=== PATIENT | female | born 1955 | race Caucasian/White ===

== ENCOUNTER 2020-07-11 18:43 | Emergency (ER) | payer OTHER, MEDICAID ==
[~2020-07-11] VITALS: Ht 147.3 cm; Wt 61.2 kg
[2020-07-11 23:26] VITALS: BP 142/69
== END 2020-07-12 00:31 | disposition home or self-care (01) ==
LOC: ER 18:44
DX: S02.2XXA Fracture of nasal bones, initial encounter for closed fracture (principal); S09.90XA Unspecified injury of head, initial encounter; F17.210 Nicotine dependence, cigarettes, uncomplicated; H05.222 Edema of left orbit; W19.XXXA Unspecified fall, initial encounter; Y93.89 Activity, other specified; Y92.89 Other specified places as the place of occurrence of the external cause; Y99.8 Other external cause status
CPT/HCPCS: 70450; 70486

== ENCOUNTER 2020-08-31 15:56 | Emergency (ER) | payer OTHER, MEDICAID ==
[~2020-08-31] VITALS: Ht 147.3 cm; Wt 61.2 kg
[2020-08-31 20:16] VITALS: BP 118/64
== END 2020-08-31 21:07 | disposition home or self-care (01) ==
LOC: ER 15:56
DX: L03.011 Cellulitis of right finger (principal); F17.210 Nicotine dependence, cigarettes, uncomplicated; Z88.0 Allergy status to penicillin; Z88.8 Allergy status to other drugs, medicaments and biological substances

== ENCOUNTER 2025-03-20 12:53 | Emergency (ER) | payer OTHER, MEDICAID ==
[~2025-03-20] VITALS: Ht 142.2 cm; Wt 66.0 kg
--- NOTE | 2025-03-20 14:31 | DVH ---
EXAM: CT HEAD WITHOUT CONTRAST INDICATION: fall TECHNIQUE: CT of the head without intravenous contrast. Radiation Dose : 1. Head: CT Dose: CTDI volume is 21.6 mGy. Dose-length product is 1450.5 mGy*cm The dose indicators for CT are the volume Computed Tomography (CT) Dose Index (CTDIvol) and the Dose Length Product (DLP), and are measured in units of mGy and mGy-cm, respectively. These indicators are not patient dose, but values generated from the CT scanner acquisition factors. The report includes radiation exposure data for exposures received during this examination. COMPARISON: HEAD WITHOUT CONTRAST on DOS: 07/11/20 FINDINGS: Motion artifact degrades fine detail. No acute territorial infarct, intracranial hemorrhage, or mass effect. There are global involutional changes with compensatory prominence of the ventricles and sulci. Patchy periventricular and subcortical white matter hypoattenuation is nonspecific but may be related to small vessel ischemic disease. Bilateral lens implants. Moderate mucosal thickening within in the right maxillary antrum. The paranasal sinuses and mastoid air cells are otherwise clear. Right frontal scalp hematoma / laceration without underlying fracture. IMPRESSION: 1. No acute territorial infarct, intracranial hemorrhage, or mass effect. 2. Age-related involutional changes. Chronic microvascular changes. 3. Right maxillary sinus disease. Radiation optimization: All CT scans at this facility use at least one of these dose optimization techniques: automated exposure control mA and/or kV adjustment per patient size (includes targeted exams where dose is matched to clinical indication) or iterative reconstruction.
--- NOTE | 2025-03-20 14:31 | DVH ---
EXAM: CT CERVICAL WITHOUT CONTRAST INDICATION: fall EXAM DATE: 03/20/2025 01:57 PM COMPARISON: None TECHNIQUE: CT exam of the cervical spine was performed without intravenous contrast. CT Dose: CTDI volume is 50.87 mGy. Dose-length product is 1450.53 mGy*cm FINDINGS: C4-C6 ACDF. Grossly intact hardware. Fusion of the C3-C4 disc space. No evidence of acute fracture. Grade 1 anterolisthesis of C7 on T1. No prevertebral edema. Paraspinal soft tissues are within normal limits. Visualized lung apices are clear. IMPRESSION: No acute cervical spine fracture. Cervical spinal fusion.
--- NOTE | 2025-03-20 14:34 | ED.PDOC ---
Ottoniel. trauma (HPI) HPI Comments The patient with a history of use of a lift chair presents for evaluation after a fall and head injury. The patient reports falling out of a chair at home approximately 8 hrs ago and striking the head on an end table, resulting in a significant laceration. The patient does not recall losing consciousness or experiencing balance issues at the time of the fall. The primary concern is the head laceration. The patient's sister accompanied them to the visit and provided transportation. The patient reports taking a blood thinner but was initially uncertain about this. No other past medical history, surgical history, allergies, family history, social history, or additional medications were discussed. Denies any other symptoms at this time. Chief Complaint: Head Injury Time Seen by MD: 13:29 Primary Care Provider: JOSSIE Loera notes: Nurses Notes, Medications, Allergies Allergies: Coded Allergies: Flu Virus Vaccine (Verified Allergy, Unknown, 08/31/20) Penicillins (Verified Allergy, Unknown, 12/01/16) Information Source: Patient Mode of Arrival: Ambulatory Severity: Moderate Duration: Since onset Prehospital treatment: None Location: Head (4 cm lack) Location of laceration: Head Mechanism: Blunt trauma, Fall Associated signs and symtoms: None Past Medical History PAST MEDICAL HISTORY: Arthritis Surgical History: Unknown LOGISTICS OPERATIONS DIRECTOR History: No Pertinent LOGISTICS OPERATIONS DIRECTOR History Family History Family History: Reviewed,noncontributory to illness, Unobtainable Social History Smoker: Cigarettes, Less Than 1 Pack/Day Alcohol: Rarely Drugs: Denies Drug Use Lives In: Home Constitutional: denies: chills, diaphoresis, fatigue, fever, malaise, sweats, weakness, others EENTM: denies: blurred vision, double vision, ear bleeding, ear discharge, ear drainage, ear pain, ear ringing, eye pain, eye redness, hearing loss, mouth pain, mouth swelling, nasal discharge, nose bleeding, nose congestion, nose pain, photophobia, tearing, throat pain, throat swelling, voice changes, others Respiratory: denies: cough, hemoptysis, orthopnea, SOB at rest, shortness of breath, SOB with excertion, stridor, wheezing, others Cardiovascular: denies: chest pain, dizzy spells, diaphoresis, Dyspnea on exertion, edema, irregular heart beat, left arm pain, lightheadedness, palp itations, PND, syncope, others Gastrointestinal: denies: abdomen distended, abdominal pain, blood streaked bowels, constipated, diarrhea, dysphagia, difficulty swallowing, hematemesis, melena, nausea, poor appetite, poor fluid intake, rectal bleeding, rectal pain, vomiting, others Genitourinary: denies: abnormal vagina bleeding, burning, dyspareunia, dysuria, flank pain, frequency, hematuria, incontinence, pain, , vagina discharge, urgency, others Neurological: denies: dizziness, fainting, headache, left sided numbness, left sided weakness, numbness, paresthesia, pre-existing deficit, right sided numbness, right sided weakness, seizure, speech problems, tingling, tremors, weakness, others Musculoskeletal: denies: back pain, gout, joint pain, joint swelling, muscle pain, muscle stiffness, neck pain, others Integumetry: reports: laceration (Large linear 4 cm laceration on the head.); denies: bruises, change in color, change in hair/nails, dryness, lesions, lumps, rash, wounds, others Allergic/Immunocompromised: denies: Difficulty Healing, Frequent Infections, Hives, Itching, others Hematologic/Lymphatic: denies: anemia, blood clots, easy bleeding, easy bruising, swollen glands, others Endocrine: denies: excessive hunger, excessive sweating, excessive thirst, excessive urination, flushing, intolerance to cold, intolerance to heat, unexplained weight gain, unexplained weight loss, others Psychiatric: denies: anxiety, bipolar disorder, depression, hopeless, panic disorder, schizophrenia, sleepless, suicidal, others All Other Systems: Reviewed and Negative Physical Exam Exam Comments Large linear 4 cm laceration on the head General Appearance: No Apparent Distress, Normal HEENT: Normal ENT Inspection, Pharynx Normal, TMs Normal Neck: Full Range of Motion, Non-Tender, Normal, Normal Inspection Respiratory: Chest Non-Tender, Lungs Clear, No Accessory Muscle Use, No Respiratory Distress, Normal Breath Sounds Cardiovascular: No Edema, No JVD, No Murmur, No Gallop, Normal Peripheral Pulses, Regular Rate/Rhythm Breast Exam: Deferred Gastrointestinal: No Organomegaly, Non Tender, No Pulsatile Mass, Normal Bowel Sounds, Soft Genitalia: Deferred Pelvic: Deferred Rectal: Deferred Extremities: No calf tenderness, Normal capillary refill, Normal inspection, Normal range of motion, Non-tender, No pedal edema Musculoskeletal : Apperance: Normal Neurologic: Alert, sales and marketing manager II-XII nml as Tested, No Motor Deficits, Normal Affect, Normal Mood, No Sensory Deficits Cerebellar Function: Normal Reflexes: Normal Skin: Dry, Normal Color, Warm Lymphatic: No Adenopathy Was a procedure done? Was a procedure done?: Yes Sedation Sedation?: No Laceration Repair : Location Top of head Length 4 cm linear laceration Anesthetic: Lidocaine, Without epi Laceration Repair Prep: Saline, by Irrigation, Manual Scrub Laceration Repair Wound Comple: epidermis/dermis repair Laceration Repair: Kimo (Four kimo placed) Informed consent obtained: Yes Risks, benefits, and alternati: Yes Differential Diagnosis Multiple Trauma: Closed Head Injury, Fractures X-Ray, Labs, Meds, VS Vital Signs Date Time Temp Pulse Resp B/P (MAP) Pulse Ox O2 Delivery O2 Flow Rate FiO2 03/20/25 14:56 68 16 98 Room Air 03/20/25 14:56 98.1 68 16 111/61 (78) 100 98.1 03/20/25 12:58 97.0 70 15 100/57 100 97.0 X-Ray, Labs, Meds, VS Comment Patient arrives alert and oriented, ABC's intact, afebrile, vital signs stable, saturating well in room air The patient presents after a fall from a chair at home with a large head laceration and a history of blood thinner use. There was no reported loss of consciousness or balance disturbance. The patient is being evaluated for potential intracranial injury and management of the laceration. Large head laceration after a fall with use of a blood thinner, no loss of co nsciousness reported. Risk for intracranial hemorrhage increased with anticoagulation. -Clean the wound -Trim hair as needed for wound care -Staple the laceration History of fall with head impact. No loss of consciousness or balance changes reported, but blood thinner use increases risk for intracranial injury. -Order head CT Follow-up/Disposition: No explicit follow-up or return precautions discussed. On reevaluation, patient had symptomatic improvement. Patient is stable for discharge at this time. External notes reviewed. Test results and diagnostic imaging interpreted. All diagnostic findings, discharge care, education and instructions provided Follow-up with PCP in 2 to 3 days Patient verbalized understanding and agreed to treatment plan Vital signs stable, afebrile, no acute distress noted Patient ambulatory with strong steady gait Advised to return precautions for any new or worsening symptoms, return to ER immediately for re-evaluation Patient is aware that the purpose of this visit was for an acute medical emergency requiring emergent stabilization. Chronic conditions, including malignancies have not been ruled out. Patient is instructed to follow up with PCP as directed and discharge instructions for continued care and workup. If unable to arrange follow-up, patient is to return to the emergency department for reassessment. Patient (parent or legal guardian if applicable) was given verbal and written discharge instructions and acknowledges understanding. Time of 1ST Reevaluation: 14:00 Reevaluation 1ST: Unchanged Patient Education/Counseling: Diagnosis, Treatment, Prognosis Family Education/Counseling: No Family Present Departure 1 Departure Time of Disposition: 14:34 Impression: Primary Impression: Blunt head injury Qualified Codes: S09.8XXA - Other specified injuries of head, initial encounter Disposition: HOME / SELF CARE / HOMELESS Condition: Stable Additional Instructions: Discharge Note: Continue on your medications. Do not drive when taking narcotics. Drink plenty of fluids. Follow up with your primary Dr. Take your prescriptions as ordered. If your condition becomes worse call and follow up with your primary Dr. for instructions or return to the ER if needed. Have the stitches/kimo removed in 7-10 days. Keep wound clean and dry. Have a wound check in 2 days. Thank you for visiting [facility]. Critical Care Note Critical Care Time?: No Stability Stability form required: No Heart Score Heart Score: Heart Score Response (Comments) Value History N/A 0 EKG N/A 0 Age N/A 0 Risk Factors N/A 0 Troponin N/A 0 Total 0 I personally scribed for LUPE CAMACHO NP ([email or web address]) on 03/20/25 at 15:52. Electronically submitted by Everardo Major ([email or web address]). LUPE CAMACHO NP Mar 20, 2025 14:34
[2025-03-20 14:56] VITALS: BP 111/61; PULSE 68; RESP 16; TEMP 98.1; O2SAT 98
== END 2025-03-20 14:58 | disposition home or self-care (01) ==
LOC: ER 12:53
DX: S01.81XA Laceration without foreign body of other part of head, initial encounter (principal); M19.90 Unspecified osteoarthritis, unspecified site; F17.210 Nicotine dependence, cigarettes, uncomplicated; Z88.0 Allergy status to penicillin; Z88.7 Allergy status to serum and vaccine; W07.XXXA Fall from chair, initial encounter; Y93.89 Activity, other specified; Y92.89 Other specified places as the place of occurrence of the external cause; Y99.8 Other external cause status
CPT/HCPCS: 12002; 70450; 72125; 99284; A4649